=== PATIENT | female | born 1990 | race Caucasian/White ===

== ENCOUNTER 2022-08-14 22:46 | Emergency (ER) | payer OTHER, MEDICAID, SELFPAY ==
[2022-08-14 22:52] VITALS: BP 116/69; PULSE 127; RESP 20; TEMP 37.5; O2SAT 95; BMI 54.8
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
[2022-08-14 23:56] LABS: Influenza A - CEPHEID Flu A NEGATIVE (NEGATIVE); Influenza B - CEPHEID Flu B NEGATIVE (NEGATIVE); Respiratory Syncytial Virus Negative (Negative)
[2022-08-14 23:57] LABS: COVID-19 CEPHEID 4-PLEX PCR Negative (Negative)
[2022-08-15] MEDS: PENICILLIN G BENZATHINE 1,200,000 UNIT/2 ML SYRINGE 1200000 UNIT IM (00:10)
[2022-08-15] MEDS: DEXAMETHASONE 10 MG/ML VIAL PO (00:11)
[2022-08-15] MEDS: BENZOCAINE/MENTHOL 1 LOZ PKT 1 EACH PO (00:12)
[2022-08-15 00:17] VITALS: BP 112/55; PULSE 124; RESP 19; O2SAT 97
== END 2022-08-15 00:17 | disposition home or self-care (01) ==
PROVIDERS: Emergency Provider Emergency Medicine; Family Provider Family Medicine; PCP Family Medicine
DX: J02.0 Streptococcal pharyngitis (principal); Z20.822 Contact with and (suspected) exposure to COVID-19
CPT/HCPCS: 0241U; 87070; 87077; 87147; 87880; 96372; 99283; J0561; J1100

== ENCOUNTER 2023-09-12 17:48 | Emergency (ER) | payer OTHER, MEDICAID, SELFPAY ==
[2023-09-12 17:51] VITALS: BP 119/60; PULSE 91; RESP 14; TEMP 36.6; O2SAT 98; BMI 26.6
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
== END 2023-09-12 18:21 | disposition home or self-care (01) ==
PROVIDERS: Emergency Provider Physician Assistant Medical; Family Provider Family Medicine
DX: S31.109A Unspecified open wound of abdominal wall, unspecified quadrant without penetration into peritoneal cavity, initial encounter (principal); L08.9 Local infection of the skin and subcutaneous tissue, unspecified; X08.8XXA Exposure to other specified smoke, fire and flames, initial encounter
CPT/HCPCS: 99282; 99283